=== PATIENT | male | born 1980 ===

== ENCOUNTER 2018-02-02 15:12 | Inpatient (IN) | payer OTHER ==
--- NOTE | 2018-02-02 15:36 | ED PDOC ---
Arrival/HPI - General Chief Complaint: Psychiatric Evaluation Time Seen by Provider: 02/02/18 15:21 Historian: Patient - History of Present Illness Narrative History of Present Illness (Text): 02/02/18 16:12 Patient is a 37 yo male with past medical history of bipolar disorder presents to the ED transferred from [facility] for psychiatric transfer. Patient reported that he planned to jump onto oncoming traffic, but did not act on this. No trauma reported. No overdose reported. Currently denies any headache, denies chest pain, denies shortness of breath. Denies tremors or shaking. Time/Duration: Prior to Arrival Past Medical History - Psychiatric Hx Anxiety: Yes Hx Bipolar Disorder: Yes Hx Substance Use: No Family/Social History Family/Social History: Unknown Family HX Smoking Status: Never Smoked Hx Alcohol Use: No Hx Substance Use: No Allergies/Home Meds Allergies/Adverse Reactions: Allergies No Known Allergies Allergy (Verified 02/02/18 15:30) Home Medications: Home Meds Medication Instructions Recorded Confirmed Aripiprazole [Abilify] 30 mg PO DAILY 02/02/18 02/02/18 [place] Carbonate [[place] 450 mg PO DAILY 02/02/18 02/02/18 Carbonate 300MG] Review of Systems - Review of Systems Constitutional: absent: Fevers Respiratory: absent: SOB Cardiovascular: absent: Chest Pain Gastrointestinal: absent: Abdominal Pain Musculoskeletal: absent: Back Pain Skin: absent: Rash Neurological: absent: Headache, Dizziness, Focal Weakness Endocrine: absent: Polyuria, Polydipsia Hemo/Lymphatic: absent: Easy Bleeding, Easy Bruising Psychiatric: Depression, Suicidal Ideation Physical Exam Vital Signs Reviewed: Yes Vital Signs Temp Pulse Resp BP Pulse Ox 02/02/18 15:12 97.4 F L 78 18 127/79 98 Temperature: Afebrile Appearance: Positive for: Well-Appearing, Non-Toxic, Comfortable Mental Status: Positive for: Alert and Oriented X 3 - Systems Exam Head: Present: Atraumatic, Normocephalic Pupils: Present: PERRL Extroacular Muscles: Present: EOMI Mouth: Present: Moist Mucous Membranes Pharnyx: No: ERYTHEMA Nose (Internal): Present: Normal Inspection Neck: Present: Normal Range of Motion. No: Meningeal Signs Respiratory/Chest: Present: Clear to Auscultation. No: Respiratory Distress Cardiovascular: Present: Regular Rate and Rhythm Abdomen: Present: Normal Bowel Sounds. No: Tenderness, Peritoneal Signs Back: No: CVA Tenderness Upper Extremity: No: Cyanosis Lower Extremity: Present: NORMAL PULSES. No: Edema Neurological: Present: CN II-XII Intact, Speech Normal, Motor Func Grossly Intact, Normal Sensory Function, Memory Normal Skin: Present: Warm Psychiatric: Present: Alert, Normal Insight, Normal Concentration, Depressed Mood, Suicidal Ideation. No: Homicidal Ideation, Hallucinations Medical Decision Making ED Course and Treatment: 02/02/18 16:16 Patient transferred from [place] for psychiatric admission. Transfer chart reviewed. Patient medically cleared at previous facility. On exam he is comfortable, alert, pleasant, but expresses suidical thoughts. Denies headache or chest pain or shortness of breath. Denies nausea or vomiting. No tremors noted. Patient admitted to psychiatric unit as per mental health. Not tremulous or tachycardic. No respiratory distress noted. No wheezing. Disposition/Present on Arrival - Present on Arrival Any Indicators Present on Arrival: No History of DVT/PE: No History of Uncontrolled Diabetes: No Urinary Catheter: No History of Decub. Ulcer: No History Surgical Site Infection Following: None - Disposition Have Diagnosis and Disposition been Completed?: Yes Diagnosis: Depression Disposition: HOSPITALIZED Disposition Time: 15:40 Patient Plan: Admission Condition: FAIR
[2018-02-02 16:11] VITALS: O2SAT 99
--- NOTE | 2018-02-02 17:58 | PCM.BM ---
<GianCornelio - Last Filed: 02/02/18 17:56> Treatment Plan Problems - Problems identified on initial assessmt ALTERED SLEEP PATTERNS Date Initiated: 02/02/18 Time Initiated: 17:56 Assessment reference: HP, NA Status: Active ALTERED THOUGHT PROCESS Date Initiated: 02/02/18 Time Initiated: 17:57 Assessment reference: HP, NA Status: Active INEFFECTIVE IMPULSE CONTROL Date Initiated: 02/02/18 Time Initiated: 17:57 Assessment reference: HP, Other Status: Active Treatment assets and liabiliti Patient Assests: cooperative, educated, physically healthy, negotiates basic needs, cognitively intact Patient Liabilities: live alone, relationship conflicts - Milieu Protocol Maintain good personal hygiene: daily Encourage regular showers, daily Remind patient to perform daily oral care, daily Assist patient to perform ADL's Maintain personal safety: daily Educate patient to report safety concerns to staff, daily Monitor environment for contraband/sharps Medication safety: Monitor for expected outcome, potential side effects: daily, Assess barriers to learning: daily, Assess readiness for medication education: daily Discharge/Continuing Care - Education Needs Education Needs: Patient Medication, Patient Diagnosis/Disease Process, Patient Coping Skills, Patient Anger Management skills, Patient Placement options, Patient Community resources, Patient Uses of Medical Equipment, Patient Health Practices/Safety, Patient Personal Hygiene/Grooming, Patient Aftercare Safety Plan - Discharge Discharge Criteria: Free of Suicidal thoughts, Free of agitation, Normal sleep pattern, Ability to care for self <Malathi Fletcher - Last Filed: 02/03/18 16:25> Family Contact Family involvement: Famliy/SO not involved - Outside Agency [facility] Care involvment: Information-sharing Agency contact name: [facility] <Guerita [place] - Last Filed: 02/05/18 09:15> - Diagnosis (1) Bipolar disorder Status: Acute Interventions: 02/03/18 09:10 Psychoeducation Psychopharmacology/adjustment of medications as needed/ monitoring possible side effects Monitor blood level of mood stabilizers Evaluate pt on daily basis Compliance with medications and follow up appointments Suicide and homicide risk assessment and prevention, coping strategies, safety plan Relapse prevention Reduction of symptoms Improve functional status Family involvement As outpatient: cognitive behavioral therapy
[2018-02-02] MEDS: Lithium Carbonate ER Tab 450 MG PO SCH (22:25)
[2018-02-03 08:00] LABS: FREE T4 0.9 ng/dL (0.78-2.19)
--- NOTE | 2018-02-03 16:49 | PCM.PSYCH ---
Initial Psychiatric Evaluation - Initial Psychiatric Evaluation Type of Admission: Voluntary Legal Status: Capacity (patient has capacity to sign consent for treatment) Chief Complaint (in patient's own words): "I was feeling neglected, I was feeling not been heard" Patient's Reaction to Hospitalization: patient was admitted to the psychiatric inpatient unit for evaluation and stabilization of depressive symptoms, inability to function, possible suicidal ideation. History of Present Illness and Precipitating Events: andreiy patient is 37-year-old male with reported history of bipolar disorder, currently under care of , history of multiple hospitalizations in the past, patient reported being compliant with the medications Abilify as well as lithium, patient was transferred from [facility] for evaluation of depressive symptoms, hopelessness, mood swings, inability to function, patient requires further evaluation and stabilization, medications adjustment. Patient was seen and examined today at the morning time at the treatment team meeting, patient presented to have acceptable personal hygiene, good ADLs, tearful, depressed, but was hiding his symptoms, was not forthcoming with information, reported that "I am not depressed, it is just tears". Patient reported that he had a verbal altercation with his family prior to admission and felt like a burden for his family, "I was feeling that they were ignoring me", pt presented with childlike demeanor, was making statement "I did not understand why I cannot say with my family but my brother can". pt denied hearing voices or seeing things, denied feeling paranoid, patient reported history of bipolar disorder. pt reported that he was feeling depressed since the of his uncle in April 2017, who because of Alzheimer' s dementia, pt was tearful when was talking about it. Patient has history of aggressive and agitated behavior, has history of impulse control problems, was even arrested for physical altercation and destroying property, being in penitentiary for two days in in 2016. Pt reports he will be living in housing provided by [facility] [employer] [facility] by the first of February 2018. PT reports prior psychiatric hospitalization in 2016. PT reports his outpatient psychiatrist, is Dr. Erickson Irwin. Pt reports he is prescribed Abilify and [place]. pt does not want to take any additional meds as of now. Pt report no prior suicide attempts. Pt currently denies any suicidal ideation. Strong family h/o mental illness: pt's mother has hx of mental illness and is diagnosed with Bipolar D/O. Pt reports his aunt was recently admitted to the hospital due to suicide attempt. Pt denies any drug, alcohol, or tobacco use. Pt reports having no medical issues. PT reports completed 2 years of college at [employer] and [employer] in [place]. PT reports getting an associates in Computer Science. but presented to be intellectually challenged and childlike demeanor. 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 " denied h/o abuse. Lab Results 02/03/18 07:00: [place] 0.6 02/03/18 07:00: Free T4 0.90, TSH 3rd Generation 2.06 02/03/18 07:00: Fasting Glucose 92 Vital Signs Temp Pulse Resp BP Pulse Ox 02/02/18 16:10 78 18 129/78 99 02/02/18 15:12 97.4 F L 78 18 127/79 98 Current Medications: Active Medications Generic Name Dose Route Start Last Admin Trade Name Freq PRN Reason Stop Dose Admin Aripiprazole 30 mg 02/02/18 22:00 02/02/18 22:25 Abilify PO 30 mg HS BRODERICK Administration Protocol [place] Carbonate 450 mg 02/02/18 22:00 02/02/18 22:25 [place] Carbonate PO 450 mg HS BRODERICK Administration Lorazepam 0.5 mg 02/02/18 17:42 02/02/18 22:25 Ativan PO 0.5 mg Q12H PRN Administration Anxiety Protocol Past Psychiatric History - Past Psychiatric History Previous Treatment History: Inpatient Prior Professional Help: see HPI Prior Psychiatric Treatment: see HPI At [facility]: see HPI Duration: see HPI Nature of Treatment: see HPI Explanation of prior treatment: see HPI History of Abuse: see HPI History of ETOH/Drug Use: see HPI History of Family Illness: see HPI Pertinent Medical Hx (Current Medical&Sleep Prob, Allergies): Allergies Allergy/AdvReac Type Severity Reaction Status Date / Time No Known Allergies Allergy Verified 02/02/18 18:00 Aripiprazole [Abilify] 30 mg PO DAILY 02/02/18 [place] Carbonate [[place] Carbonate 300MG] 450 mg PO DAILY 02/02/18 Review of Systems - Review of Systems Systems not reviewed;Unavailable: Acuity of Condition - EENT Eyes: As Per HPI Ears: As Per HPI Nose/Mouth/Throat: As Per HPI - Cardiovascular Cardiovascular: As Per HPI - Respiratory Respiratory: As Per HPI - Gastrointestinal Gastrointestinal: As Per HPI - Genitourinary Genitourinary: As Per HPI - Reproductive: Male Reproductive:Male: As Per HPI - Musculoskeletal Musculoskeletal: As Par HPI - Integumentary Integumentary: As Per HPI - Neurological Neurological: As Per HPI - Psychiatric Psychiatric: As Per HPI - Endocrine Endocrine: As Per HPI - Hematologic/Lymphatic Hematologic: As Per HPI Mental Status Examination - Personal Presentation Personal Presentation: Looks stated age - Affect Affect: Flat (N tearful) - Motor Activity Motor Activity: Psychomotor Retardation - Reliability in Providing Information Reliability in Providing Information: Fair - Speech Speech: Organized - Mood Mood: Depressed, Anxious - Formal Thought Process Formal Thought Process: Other (thought process was concrete) - Obsessions/Compulsions Obsessions: None Compulsions: None - Cognitive Functions Orientation: Person, Place, Situation Sensorium: Alert Attention/Concentration: Easily distracted Abstract Thinking: [place] Estimate of Intelligence: Average Judgement: Intact, as evidence by: Insight regarding need for hospitalization - Risk Risk: Self-mutilation, Diminished functioning - Strength & Assets Inventory Strength & Assets Inventory: Family support, Education, Cooperative, Other ( good physical health, no drug abuse) - Limitations Limitations: Other (pt has long h/o mental illness, h/o aggression) DSM 5 DX - DSM 5 DSM 5 Diagnosis: as per h/o bipolar disorder r/o impulse control disorder - Recommended/Plan of Treatment Treatment Recommendations and Plan of Treatment: Milieu/structure/supportive therapy Medical consult would be considered SW consultation for discharge plan and social issues Med management lithium and abilify resumed remeron started Family involvement Follow up on labs Will monitor closely Pt was educated about risk/benefits and alternatives of medications, coping strategies (safety plan, suicide prevention), relapse prevention, importance of follow up with psychiatrist and therapist, stay away from drugs/alcohol/smoking Projected ELOS: 7days Prognosis: fair Discharge Plan and Discharge Criteria: Pt will be not depressed or manic, will be more hopeful, will be not psychotic or anxious, will be not having thoughts of harming self or others, will be tolerating medications well, will not have major side effects, will be able to function, will not pose threat to self or others. - Smoking Cessation Smoking Cessation Initiated: No Reason for not providing: denied smoking
[2018-02-03] MEDS: Lithium Carbonate ER Tab 450 MG PO SCH (21:31)
--- NOTE | 2018-02-04 14:50 | PCM.PYCHPN ---
Psychiatric Progress Note - Psychiatric Progress Note Patient seen today, length of contact: 30 minutes Patient Chief Complaint: "I feels okay today, I think medication works, I know now I needed to take medication daily, I skipped my dose a night before coming to the hospital" Problems Identified/Issues Discussed: Suicide/ homicide prevention, past psychiatric h/o, current psychiatric symptoms , medical problems, risk/benefits and alternatives of medications, medications compliance, coping strategies, substance abuse h/o, relapse prevention, importance of follow up with psychiatrist and therapist, discharge plan. Medical Problems: see HPI Diagnostic Results: Lab Results 02/03/18 07:00: RPR Nonreactive 02/03/18 07:00: [place] 0.6 02/03/18 07:00: Free T4 0.90, TSH 3rd Generation 2.06 02/03/18 07:00: Fasting Glucose 92 Vital Signs Temp Pulse Resp BP Pulse Ox 02/04/18 07:26 97.9 F 66 20 109/72 02/03/18 15:00 91 H 120/76 02/02/18 16:10 78 18 129/78 99 02/02/18 15:12 97.4 F L 78 18 127/79 98 DSM 5 Symptoms Update: Shortly patient is 37-year-old male with reported history of bipolar disorder, currently under care of , history of multiple hospitalizations in the past, patient reported being compliant with the medications Abilify as well as lithium, patient was transferred from [facility] for evaluation of depressive symptoms, hopelessness, mood swings, inability to function, patient requires further evaluation and stabilization, medications adjustment. Patient was seen and examined today at the [facility], pt presented to be brighter , not that tearful. pt reported that he skipped dose of meds day prior to his admission, patient was educated to take medications daily, as it was prescribed. As per staff patient does not have any behavioral outbursts, no agitation or aggression. No psychotic symptoms elicited or reported. Patient tolerates medications well, no side effects observed or reported, aims 0 , no EPS. Impression: As per history of bipolar disorder Rule out impulse control disorder. Medication Change: Yes (Remeron increased) Medical Record Reviewed: Yes Consults ordered or reviewed: patient in good physical health, was seen by emergency room physician, does not need to be seen by medical team as of now Mental Status Examination - Cognitive Function Orientation: Person, Place, Situation Memory: Intact Attention: Poor Concentration: Poor Association: WNL Fund of Knowledge: Poor (baseline) - Mood Mood: Depressed (i feel little better), Anxious - Affect Affect: Constricted (but more reactive and mood congruent) - Speech Speech: Appropriate - Formal Thought Process Formal Thought Process: Other (thought process was concrete) - Suicidal Ideation Suicidal Ideation: No - Homicidal Ideation Homicidal Ideation: No Goal/Treatment Plan - Goal/Treatment Plan Need for Continued Stay: Remain at risks for inpatient hospitalization, Severe depression anxiety, Discharge may exacerbated symptoms, Severe functional impairment Progress Toward Problem(s) and Goals/Treatment Plan: Milieu/structure/supportive therapy Medical consult would be considered SW consultation for discharge plan and social issues Med management lithium and abilify resumed remeron will be increased today started Family involvement Follow up on labs Will monitor closely Pt was educated about risk/benefits and alternatives of medications, coping strategies (safety plan, suicide prevention), relapse prevention, importance of follow up with psychiatrist and therapist, stay away from drugs/alcohol/smoking Estimated Date of D/C: 02/07/18
[2018-02-04] MEDS: Lithium Carbonate ER Tab 450 MG PO SCH (21:25)
--- NOTE | 2018-02-05 15:29 | PCM.PYCHPN ---
Psychiatric Progress Note - Psychiatric Progress Note Patient seen today, length of contact: 30 minutes Patient Chief Complaint: "I feels okay today, I think medication works, I know now I needed to take medication daily, I skipped my dose a night before coming to the hospital" Problems Identified/Issues Discussed: Suicide/ homicide prevention, past psychiatric h/o, current psychiatric symptoms , medical problems, risk/benefits and alternatives of medications, medications compliance, coping strategies, substance abuse h/o, relapse prevention, importance of follow up with psychiatrist and therapist, discharge plan. Medical Problems: see HPI Diagnostic Results: Lab Results 02/03/18 07:00: RPR Nonreactive 02/03/18 07:00: [place] 0.6 02/03/18 07:00: Free T4 0.90, TSH 3rd Generation 2.06 02/03/18 07:00: Fasting Glucose 92 Vital Signs Temp Pulse Resp BP Pulse Ox 02/04/18 07:26 97.9 F 66 20 109/72 02/03/18 15:00 91 H 120/76 02/02/18 16:10 78 18 129/78 99 02/02/18 15:12 97.4 F L 78 18 127/79 98 DSM 5 Symptoms Update: Shortly patient is 37-year-old male with reported history of bipolar disorder, currently under care of , history of multiple hospitalizations in the past, patient reported being compliant with the medications Abilify as well as lithium, patient was transferred from [facility] for evaluation of depressive symptoms, hopelessness, mood swings, inability to function, patient requires further evaluation and stabilization, medications adjustment. Patient was seen and examined today at the [facility], pt presented to be brighter , not that tearful, at the same time pt stars at this journalists and other writers intimidating, pt does not have any aggressive or agitated behavior. No psychotic symptoms elicited or reported. Patient tolerates medications well, no side effects observed or reported, aims 0 , no EPS. Impression: As per history of bipolar disorder Rule out impulse control disorder. Medication Change: Yes (Remeron increased) Medical Record Reviewed: Yes Mental Status Examination - Cognitive Function Orientation: Person, Place, Situation Memory: Intact Attention: Poor Concentration: Poor Association: WNL Fund of Knowledge: Poor (baseline) - Mood Mood: Depressed (i feel little better), Anxious - Affect Affect: Constricted (but more reactive and mood congruent) - Speech Speech: Appropriate - Formal Thought Process Formal Thought Process: Other (thought process was concrete) - Suicidal Ideation Suicidal Ideation: No - Homicidal Ideation Homicidal Ideation: No Goal/Treatment Plan - Goal/Treatment Plan Need for Continued Stay: Remain at risks for inpatient hospitalization, Severe depression anxiety, Discharge may exacerbated symptoms, Severe functional impairment Progress Toward Problem(s) and Goals/Treatment Plan: Milieu/structure/supportive therapy Medical consult would be considered SW consultation for discharge plan and social issues Med management lithium and abilify resumed remeron increased yesterday Family involvement Follow up on labs Will monitor closely Pt was educated about risk/benefits and alternatives of medications, coping strategies (safety plan, suicide prevention), relapse prevention, importance of follow up with psychiatrist and therapist, stay away from drugs/alcohol/smoking Estimated Date of D/C: 02/07/18
[2018-02-05] MEDS: Lithium Carbonate ER Tab 450 MG PO SCH (21:12)
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
--- NOTE | 2018-02-06 17:27 | PCM.PYCHPN ---
Psychiatric Progress Note - Psychiatric Progress Note Patient seen today, length of contact: 30 minutes Patient Chief Complaint: "finally I am on good medications, I feel good" Problems Identified/Issues Discussed: Suicide/ homicide prevention, past psychiatric h/o, current psychiatric symptoms , medical problems, risk/benefits and alternatives of medications, medications compliance, coping strategies, substance abuse h/o, relapse prevention, importance of follow up with psychiatrist and therapist, discharge plan. Medical Problems: see HPI Diagnostic Results: Lab Results 02/03/18 07:00: RPR Nonreactive 02/03/18 07:00: [place] 0.6 02/03/18 07:00: Free T4 0.90, TSH 3rd Generation 2.06 02/03/18 07:00: Fasting Glucose 92 Vital Signs Temp Pulse Resp BP Pulse Ox 02/04/18 07:26 97.9 F 66 20 109/72 02/03/18 15:00 91 H 120/76 02/02/18 16:10 78 18 129/78 99 02/02/18 15:12 97.4 F L 78 18 127/79 98 DSM 5 Symptoms Update: Shortly patient is 37-year-old male with reported history of bipolar disorder, currently under care of , history of multiple hospitalizations in the past, patient reported being compliant with the medications Abilify as well as lithium, patient was transferred from [facility] for evaluation of depressive symptoms, hopelessness, mood swings, inability to function, patient requires further evaluation and stabilization, medications adjustment. Patient was seen and examined today at the hallway, pt presented to be brighter , not that tearful, patient said "finally I'm right medication now", as per pt [facility], discharge plan was d/w pt. Pt was seen by medical team today for physical exam. No psychotic symptoms elicited or reported. as per staff pt does not have aggressive or agitated behavior. Patient tolerates medications well, no side effects observed or reported, aims 0 , no EPS. Impression: As per history of bipolar disorder Rule out impulse control disorder. Medication Change: Yes (Remeron increased) Medical Record Reviewed: Yes Mental Status Examination - Cognitive Function Orientation: Person, Place, Situation Memory: Intact Attention: Poor (better) Concentration: Poor (better) Association: WNL Fund of Knowledge: Poor (baseline) - Mood Mood: Depressed (better) - Affect Affect: Constricted (but more reactive and mood congruent) - Speech Speech: Appropriate - Formal Thought Process Formal Thought Process: Other (thought process was concrete) - Suicidal Ideation Suicidal Ideation: No - Homicidal Ideation Homicidal Ideation: No Goal/Treatment Plan - Goal/Treatment Plan Need for Continued Stay: Remain at risks for inpatient hospitalization, Severe depression anxiety, Discharge may exacerbated symptoms, Severe functional impairment Progress Toward Problem(s) and Goals/Treatment Plan: Milieu/structure/supportive therapy Medical consult would be considered SW consultation for discharge plan and social issues Med management lithium and abilify remeron Family involvement Follow up on labs Will monitor closely Pt was educated about risk/benefits and alternatives of medications, coping strategies (safety plan, suicide prevention), relapse prevention, importance of follow up with psychiatrist and therapist, stay away from drugs/alcohol/smoking Estimated Date of D/C: 02/07/18
[2018-02-06] MEDS: Lithium Carbonate ER Tab 450 MG PO SCH (21:11)
[2018-02-07 06:53] VITALS: BP 125/86; PULSE 77; RESP 18; TEMP 98
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
== END 2018-02-07 09:41 | disposition home or self-care (01) | DRG 430 ==
LOC: ED 15:12 → ERH 15:33 → PSYC 16:49
PROVIDERS: ADMIT Psychiatry & Neurology Psychiatry; ATTEND Psychiatry & Neurology Psychiatry
PROC: GZ3ZZZZ Medication Management (ICD-10-PCS; principal; 2018-02-02)
DX: F31.9 Bipolar disorder, unspecified (principal); R45.851 Suicidal ideations; Z81.8 Family history of other mental and behavioral disorders

== ENCOUNTER 2018-09-09 00:43 | Inpatient (IN) | payer MEDICAID, OTHER ==
[2018-09-09 00:59] VITALS: BMI 23.6
--- NOTE | 2018-09-09 01:03 | ED PDOC ---
Arrival/HPI - General Time Seen by Provider: 09/09/18 00:50 Historian: Patient - History of Present Illness Narrative History of Present Illness (Text): 09/09/18 01:03 Fitz Luna is a 38 year old male, whose past medical history includes bipolar disorder, who presents to the Emergency department complaining of suicidal ideation. Patient states he has been feeling depressed since yesterday with suicidal ideation today. Patient states he wants to "jump in front of traffic." Patient denies any fever, chills, chest pain, shortness of breath, nausea, vomiting, diarrhea, urinary symptoms, back pain, neck pain, headache, dizziness, or any other complaints. Symptom Onset: Gradual Symptom Course: Unchanged Activities at Onset: Light Context: Home Past Medical History - Provider Review Nursing Documentation Reviewed: Yes - Infectious Disease Hx of Infectious Diseases: None - Cardiac Hx Hypertension: No - Pulmonary Hx Tuberculosis: No - Neurological Hx Seizures: No - HEENT Hx HEENT Disorder: No - Renal Hx Renal Disorder: No - Endocrine/Metabolic Hx Endocrine Disorders: No - Hematological/Oncological Hx Cancer: No - Integumentary Hx Dermatological Disorder: No - Musculoskeletal/Rheumatological Hx Musculoskeletal Disorders: No - Gastrointestinal Hx Gastrointestinal Disorders: No - Genitourinary/Gynecological Hx Sexually Transmitted Diseases: No - Psychiatric Hx Anxiety: Yes Hx Bipolar Disorder: Yes Hx Substance Use: No - Anesthesia Hx Anesthesia: No Family/Social History - Physician Review Nursing Documentation Reviewed: Yes Family/Social History: Unknown Family HX Smoking Status: Never Smoked Hx Alcohol Use: No Hx Substance Use: No Allergies/Home Meds Allergies/Adverse Reactions: Allergies No Known Allergies Allergy (Verified 02/02/18 18:00) Review of Systems - Physician Review All systems were reviewed & negative as marked: Yes - Review of Systems Constitutional: Normal. absent: Fevers Eyes: Normal ENT: Normal Respiratory: Normal. absent: SOB, Cough Cardiovascular: Normal. absent: Chest Pain Gastrointestinal: Normal. absent: Abdominal Pain, Diarrhea, Nausea, Vomiting Genitourinary Male: Normal. absent: Dysuria, Frequency, Hematuria, Urinary Output Changes Musculoskeletal: Normal. absent: Back Pain, Neck Pain Skin: Normal. absent: Rash Neurological: Normal. absent: Headache, Dizziness Endocrine: Normal Hemo/Lymphatic: Normal Psychiatric: Normal, Depression, Suicidal Ideation Physical Exam Vital Signs Reviewed: Yes Vital Signs Temp Pulse Resp BP Pulse Ox 09/09/18 01:00 98.4 F 90 18 143/81 96 Temperature: Afebrile Blood Pressure: Normal Pulse: Regular Respiratory Rate: Normal Appearance: Positive for: Well-Appearing, Non-Toxic, Comfortable Pain Distress: None Mental Status: Positive for: Alert and Oriented X 3 - Systems Exam Head: Present: Atraumatic, Normocephalic Pupils: Present: PERRL Extroacular Muscles: Present: EOMI Conjunctiva: Present: Normal Mouth: Present: Moist Mucous Membranes Neck: Present: Normal Range of Motion Respiratory/Chest: Present: Clear to Auscultation, Good Air Exchange. No: Respiratory Distress, Accessory Muscle Use Cardiovascular: Present: Regular Rate and Rhythm, Normal S1, S2. No: Murmurs Abdomen: No: Tenderness, Distention, Peritoneal Signs Back: Present: Normal Inspection Upper Extremity: Present: Normal Inspection. No: Cyanosis, Edema Lower Extremity: Present: Normal Inspection. No: Edema Neurological: Present: GCS=15, CN II-XII Intact, Speech Normal Skin: Present: Warm, Dry, Normal Color. No: Rashes Psychiatric: Present: Alert, Oriented x 3, Normal Insight, Normal Concentration Medical Decision Making ED Course and Treatment: 09/09/18 01:03 Impression: 38 year old male complaining of depression and suicidal ideation. Plan: -- EKG -- Chest X-ray -- Labs, alcohol level -- Urine drug screen -- Reassess and disposition Progress Notes: 09/09/18 04:31 Chest X-ray reviewed, shows no acute processes. 09/09/18 04:39 Reviewed EKG, NSR at [address]-segment elevations or depressions, no T-wave inversions, normal intervals. 09/09/18 07:[address] Reilly, pending PES evaluation and disposition. - RAD Interpretation Tutorial Laboratory Supervisor: ED Physician - EKG Interpretation Interpreted by ED Physician: Yes Type: 12 lead EKG - Scribe Statement The provider has reviewed the documentation as recorded by the Erik Mccann Provider Scribe Attestation: All medical record entries made by the Scribe were at my direction and personally dictated by me. I have reviewed the chart and agree that the record accurately reflects my personal performance of the history, physical exam, medical decision making, and the department course for this patient. I have also personally directed, reviewed, and agree with the discharge instructions and disposition. Disposition/Present on Arrival - Present on Arrival Any Indicators Present on Arrival: No History of DVT/PE: No History of Uncontrolled Diabetes: No Urinary Catheter: No History Surgical Site Infection Following: None - Disposition Have Diagnosis and Disposition been Completed?: No Diagnosis: History of bipolar disorder Disposition Time: 07:00 Condition: STABLE Referrals: Burak Velazquez MD [Primary Care Provider] - Follow up with primary
[2018-09-09 02:52] LABS: HEMOGLOBIN 15.5 g/dL (14.0-18.0); MEAN CELL VOLUME 87.5 fl (80.0-105.0); MEAN CORPUSCULAR HEMOGLOBIN 30.2 pg (25.0-35.0); MEAN CORPUSCULAR HGB CONC 34.5 g/dl (31.0-37.0); MEAN PLATELET VOLUME 9.8 fl (7.0-11.0); RBC 5.13 10^6/uL (3.5-6.1); RED CELL DISTRIBUTION WIDTH 12.4 % (11.5-14.5); WHITE BLOOD COUNT 9.7 10^3/uL (4.5-11.0)
[2018-09-09 03:12] LABS: ALB/GLOB RATIO 1.3 (1.1-1.8); ALBUMIN 4.7 g/dL (3.0-4.8); ALT/SGPT 40 U/L (7-56); AST/SGOT 32 U/L (17-59); BLOOD UREA NITROGEN 18 mg/dL (7-21); CALCIUM 9.6 mg/dL (8.4-10.5); GFR NON-AFRICAN AMERICAN > 60
[2018-09-09 05:32] LABS: BARBITURATES, UR NEGATIVE (NEGATIVE); BENZODIAZEPINES, UR NEGATIVE (NEGATIVE); OPIATES, UR NEGATIVE (NEGATIVE); PHENCYCLIDINE, UR NEGATIVE (NEGATIVE)
[2018-09-09 05:58] LABS: URINE BILIRUBIN NEGATIVE (NEGATIVE); URINE BLOOD NEGATIVE (NEGATIVE); URINE GLUCOSE (UA) NEGATIVE (NEGATIVE); URINE LEUKOCYTE ESTERASE NEGATIVE Leu/uL (NEGATIVE); URINE PROTEIN NEGATIVE mg/dL (<30 mg/dL); URINE UROBILINOGEN 0.2 E.U./dL (<1 E.U./dL)
[2018-09-09 06:01] LABS: URINE APPEARANCE CLEAR (CLEAR); URINE COLOR YELLOW (YELLOW)
--- NOTE | 2018-09-09 10:15 | ED PDOC ---
Physical Exam Vital Signs Temp Pulse Resp BP Pulse Ox 09/09/18 09:00 98.1 F 86 18 126/77 98 09/09/18 07:51 98.0 F 92 H 18 127/75 100 09/09/18 06:33 82 18 119/69 100 09/09/18 01:00 98.4 F 90 18 143/81 96 Medical Decision Making ED Course and Treatment: Signed out at change of shift pending PES evaluation. - Lab Interpretations Lab Results: Total Bilirubin 0.5 mg/dL (0.2-1.3) 09/09/18 02:00 AST 32 U/L (17-59) 09/09/18 02:00 ALT 40 U/L (7-56) 09/09/18 02:00 Alkaline Phosphatase 66 U/L (38-126) 09/09/18 02:00 Total Protein 8.2 g/dL (5.8-8.3) 09/09/18 02:00 Albumin 4.7 g/dL (3.0-4.8) 09/09/18 02:00 Globulin 3.5 gm/dL 09/09/18 02:00 Albumin/Globulin Ratio 1.3 (1.1-1.8) 09/09/18 02:00 Urine Color Yellow (YELLOW) 09/09/18 02:15 Urine Appearance Clear (CLEAR) 09/09/18 02:15 Urine pH 6.0 (4.7-8.0) 09/09/18 02:15 Ur Specific [place] >= 1.030 (1.005-1.035) 09/09/18 02:15 Urine Protein Negative mg/dL (<30 mg/dL) 09/09/18 02:15 Urine Glucose (UA) Negative mg/dL (NEGATIVE) 09/09/18 02:15 Urine Ketones Negative mg/dL (NEGATIVE) 09/09/18 02:15 Urine Blood Negative (NEGATIVE) 09/09/18 02:15 Urine Nitrate Negative (NEGATIVE) 09/09/18 02:15 Urine Bilirubin Negative (NEGATIVE) 09/09/18 02:15 Urine Urobilinogen 0.2 E.U./dL (<1 E.U./dL) 09/09/18 02:15 Ur Leukocyte Esterase Negative [place]a/uL (NEGATIVE) 09/09/18 02:15 - RAD Interpretation Radiology Orders: 09/09/18 01:05 CHEST PORTABLE [RAD] Stat Disposition/Present on Arrival - Present on Arrival Any Indicators Present on Arrival: No History of DVT/PE: No History of Uncontrolled Diabetes: No Urinary Catheter: No History of Decub. Ulcer: No History Surgical Site Infection Following: None - Disposition Have Diagnosis and Disposition been Completed?: Yes Diagnosis: Bipolar disorder Disposition: HOSPITALIZED Disposition Time: 10:15 Patient Plan: Admission Patient Problems: Current Active Problems Problem Status Onset History of bipolar disorder Acute Condition: GUARDED Referrals: Burak Velazquez MD [Primary Care Provider] - Follow up with primary
--- NOTE | 2018-09-09 10:57 | CARD ---
APPROVED REPORT Date of service: 09/09/2018 EKG Measurement Heart [id number] <Conclusion> Normal sinus rhythm Normal ECG
[2018-09-09 11:16] VITALS: O2SAT 96
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
--- NOTE | 2018-09-09 14:36 | RAD ---
Date of service: 09/09/2018 HISTORY: medical clearance COMPARISON: No prior. FINDINGS: LUNGS: No active pulmonary disease. PLEURA: No significant pleural effusion identified, no pneumothorax apparent. CARDIOVASCULAR: No atherosclerotic calcification present Normal. OSSEOUS STRUCTURES: No significant abnormalities. VISUALIZED UPPER ABDOMEN: Normal. OTHER FINDINGS: None. IMPRESSION: No active disease.
--- NOTE | 2018-09-09 19:19 | PCM.BM ---
<Patt Doshi - Last Filed: 09/09/18 19:15> Treatment Plan Problems - Problems identified on initial assessmt INEFFECTIVE IMPULSE CONTROL Date Initiated: 09/09/18 Time Initiated: 19:00 Assessment reference: NA Status: Active Priority: 1 MEDICATION NON ADHERENCE Date Initiated: 09/09/18 Time Initiated: 19:00 Assessment reference: NA Status: Active Priority: 2 AGITATED/AGGRESSIVE BEHAVIOR Date Initiated: 09/09/18 Time Initiated: 19:00 Assessment reference: NA Status: Active Priority: 3 Treatment assets and liabiliti Patient Assests: cooperative, educated, motivated, ADL independent, physically healthy, negotiates basic needs, cognitively intact Patient Liabilities: live alone, financial problems, poor support system - Milieu Protocol Maintain good personal hygiene: every shift Encourage regular showers, every shift Remind patient to perform daily oral care, every shift Assist patient to perform ADL's Maintain personal safety: daily Educate patient to report safety concerns to staff, daily Monitor environment for contraband/sharps Medication safety: Monitor for expected outcome, potential side effects: daily, Assess barriers to learning: daily, Assess readiness for medication education: daily Discharge/Continuing Care - Education Needs Education Needs: Patient Medication, Patient Diagnosis/Disease Process, Patient Coping Skills, Patient Community resources, Patient Activities of Daily Living, Patient Nutrition, Patient Health Practices/Safety, Patient Personal Hygiene/ Grooming, Patient Aftercare Safety Plan - Discharge Discharge Criteria: Tolerates medication w/o severe side effects, Free of Suicidal thoughts, Free of paranoid thoughts, Free of agitation, Normal sleep pattern, Ability to care for self, Reduction of target symptoms Discharge to:: Home <Jeff Metz - Last Filed: 09/10/18 13:26> - Diagnosis (1) Schizoaffective disorder Status: Acute Interventions: 09/10/18 13:27 * group, milieu and supportive tx * Abilify 30 mg po daily for disorganization and mood control * Galva 450 mg po hs for mood control * Remeron 30 mg po HS for depression * Ambien 5 mg po HS prn: insomnia * Geodon + Ativan prns for agitation <Malathi Fletcher - Last Filed: 09/10/18 14:42> Family Contact Family involvement: Family/SO is involved Family contact: Patient agrees to contact - Outside Agency [facility] Care involvment: Information-sharing Agency contact name: [facility]
[2018-09-09] MEDS: Lithium Carbonate ER Tab 450 MG PO SCH (21:10)
[2018-09-10 06:59] VITALS: RESP 20
[2018-09-10 08:31] LABS: HDL CHOLESTEROL 41 mg/dL (29-60)
[2018-09-10 08:42] LABS: LDL CHOLESTEROL 86 mg/dL (0-129)
[2018-09-10 08:47] LABS: FREE T4 0.98 ng/dL (0.78-2.19)
--- NOTE | 2018-09-10 13:33 | PCM.PSYCH ---
Initial Psychiatric Evaluation - Initial Psychiatric Evaluation Type of Admission: Voluntary Legal Status: Capacity History of Present Illness and Precipitating Events: Patient is a single 38-year-old male with a likely diagnosis of schizoaffective disorder, multiple prior psychiatric hospitalizations~ most recently at [facility] February 02 to February 07, 2018, prescribed Abilify, lithium and remeron at [facility] who was admitted to our psychiatric unit after he called 911 because of depression and suicidal thoughts of jumping in front of traffic. Dr. Lake consulted with patient in the ER. Her report indicates that patient was labile, irritable and paranoid. He admitted that he didn't take his medications recently because he believed the water was contaminated. Patient also expressed having a lot of resentment towards his family because he believed they treated his brother better than him. Patient was admitted in 01/2018 because he threatened to harm his grandmother. His grandmother refused to permit him back into her home which resulted in patient being discharged to [facility] program. On the unit, patient has been oriented x3, calm and cooperative. He was able to interact with other patients without any behavioral problems and has been compliant with medications. Thus far he is tolerating his medications and denies any new concerns. He reports improvement in self control and mood, thus far his presentation is consistent with this self report. Of note: Per package winder note "Patient stated I was just upset, I'm fine now. Admits that he did make statement to basically take [himself] out but that he said it out of anger and frustration, and to get attention from his family. Pt. denies any prior SA, but admits that he has previously made such statements to get attention from his family and get them upset. PSYCHIATRIC HISTORY ~Prior admission at [facility] in January 2018 and [facility] in January 2016. ~Patient was discharged 01/2018 from [facility] with the following Rx: remeron 30 HS, lithium 450 HS, Abilify 30 mg po daily. ~Followed up with Dr. Irwin at [facility]. Prescribed remeron 30 HS, lithium 450 HS, Abilify 30 mg po daily. Recently his outpatient care was transfered to Dr. Hart who is affiliated with [facility]. ~[facility] contact information Sara Dasn: [phone] ext. [phone] and Kodi Quintana [phone] ext. [phone]. ~Patient denies any history of suicide attempts. SOCIAL HISTORY Born and raise in [place]. Single. No children. Lives in [address]. Graduated high school. Patient is unemployed. He denies any drug or alcohol or tobacco use. The patient failed the outpatient lower level of care: Yes Current Medications: Active Medications Generic Name Dose Route Start Last Admin Trade Name Freq PRN Reason Stop Dose Admin Aripiprazole 30 mg 09/09/18 22:00 09/09/18 21:10 Abilify PO 30 mg HS BRODERICK Administration Protocol Sledge Carbonate 450 mg 09/09/18 22:00 09/09/18 21:10 Sledge Carbonate PO 450 mg HS BRODERICK Administration Lorazepam 2 mg 09/09/18 13:05 Ativan IM Q6H PRN Anxiety Protocol Lorazepam 2 mg 09/09/18 13:06 Ativan PO Q6H PRN Anxiety Protocol Mirtazapine 30 mg 09/09/18 22:00 09/09/18 21:10 Remeron PO 30 mg HS BRODERICK Administration Ziprasidone 20 mg 09/09/18 13:03 Geodon Cap PO Q6H PRN Agitation Protocol Ziprasidone 20 mg 09/09/18 13:04 Geodon Inj IM Q6H PRN Agitation Protocol Zolpidem Tartrate 5 mg 09/09/18 13:06 Ambien PO HS PRN Insomnia Protocol Present on Admission - Present on Admission Any Indicators Present on Admission: No - Notes: Notes:: Please refer to ER report dated 09/09/18 for physical exam and ROS findings. Review of Systems - Review of Systems Review of Systems: Please refer to ER report dated 09/09/18 for physical exam and ROS findings. - Constitutional Constitutional: As Per HPI - EENT Eyes: As Per HPI Ears: As Per HPI Nose/Mouth/Throat: As Per HPI - Cardiovascular Cardiovascular: As Per HPI - Respiratory Respiratory: As Per HPI - Gastrointestinal Gastrointestinal: As Per HPI - Genitourinary Genitourinary: As Per HPI - Reproductive: Male Reproductive:Male: As Per HPI - Musculoskeletal Musculoskeletal: As Per HPI - Integumentary Integumentary: As Per HPI - Neurological Neurological: As Per HPI - Psychiatric Psychiatric: As Per HPI - Endocrine Endocrine: As Per HPI - Hematologic/Lymphatic Hematologic: As Per HPI Past Patient History - Past Psychiatric History Prior Professional Help: See HPI - PSYCHIATRIC Hx Bipolar Disorder: Yes Hx Emotional Abuse: No Hx Physical Abuse: No Hx Sexual Abuse: No Hx Substance Use: No - Infectious Disease Hx of Infectious Diseases: None - Past Medical History & Family History Past Medical History?: Yes - CARDIAC Hx Hypertension: No - PULMONARY Hx Tuberculosis: No - NEUROLOGICAL Hx Seizures: No - HEENT Hx HEENT Problems: No - RENAL Hx Chronic Kidney Disease: No - ENDOCRINE/METABOLIC Hx Endocrine Disorders: No - HEMATOLOGICAL/ONCOLOGICAL Hx Cancer: No - INTEGUMENTARY Hx Dermatological Problems: No - MUSCULOSKELETAL/RHEUMATOLOGICAL Hx Musculoskeletal Disorders: No - GASTROINTESTINAL Hx Gastrointestinal Disorders: No - GENITOURINARY/GYNECOLOGICAL Hx Sexually Transmitted Disorders: No - SURGICAL HISTORY Hx Surgeries: No - ANESTHESIA Hx Anesthesia: No - Medical/Surgical History Reviewed & confirmed: by me (Please refer to ER report dated 09/09/18 for physical exam and ROS findings. ) Meds Allergies/Adverse Reactions: Allergies Allergy/AdvReac Type Severity Reaction Status Date / Time No Known Allergies Allergy Verified 02/02/18 18:00 Mental Status Examination - Personal Presentation Personal Presentation: Looks stated age - Affect Affect: Constricted, Blunted - Motor Activity Motor Activity: Calm - Reliability in Providing Information Reliability in Providing Information: Fair - Speech Speech: Organized - Mood Mood: Depressed - Formal Thought Process Formal Thought Process: No Impairment, Paranoia (a little guarded) - Obsessions/Compulsions Obsessions: No Compulsions: No - Cognitive Functions Orientation: Person, Place, Situation Sensorium: Alert Attention/Concentration: Easily distracted Estimate of Intelligence: Below average Judgement: Intact, as evidence by: Insight regarding need for hospitalization Memory: Recent intact, as evidence by: Ability to recall events of the day - Risk Risk: Suicidal, Diminished functioning Psychiatric Physical Exam - Physical Exam Reviewed and confirmed: Emergency Department Physical Exam - Additional Findings Additional findings: Please refer to ER report dated 09/09/18 for physical exam and ROS findings. Results - Vital Signs Recent Vital Signs: Last Vital Signs Temp 98.1 F 09/09/18 13:18 Pulse 93 H 09/09/18 13:18 Resp 17 09/09/18 13:18 BP 127/90 09/09/18 13:18 Pulse Ox 96 09/09/18 11:00 - Labs Result Diagrams: 09/09/18 02:00 09/09/18 02:00 Labs: Laboratory Results - last 24 hr 09/09/18 09/09/18 02:00 02:15 Urine Color Yellow Urine Appearance Clear Urine pH 6.0 Ur Specific [place] >= 1.030 Urine Protein Negative Urine Glucose (UA) Negative Urine Ketones Negative Urine Blood Negative Urine Nitrate Negative Urine Bilirubin Negative Urine Urobilinogen 0.2 Ur Leukocyte Esterase Negative Sledge 0.4 L - Impressions Impression: Please refer to ER report dated 09/09/18 for physical exam and ROS findings. DSM Plan - DSM 5 DSM 5 Diagnosis: Schizoaffective Disorder - Recommended/Plan of Treatment Treatment Recommendations and Plan of Treatment: * group, milieu and supportive tx * Abilify 30 mg po daily for disorganization and mood control * Sledge 450 mg po hs for mood control * Remeron 30 mg po HS for depression * Ambien 5 mg po HS prn: insomnia * Geodon + Ativan prns for agitation * Vitals reviewed and noted below: Selected Entries 09/09/18 09/09/18 11:00 13:18 Temperature 98.2 F 98.1 F Pulse Rate 91 H 93 H Respiratory 16 17 Rate Blood Pressure 130/73 127/90 Please refer to ER report dated 09/09/18 for physical exam and ROS findings. ER Progress Notes: 09/09/18 04:31 Chest X-ray reviewed, shows no acute processes. ER 09/09/18 04:39 Reviewed EKG, NSR at [address]-segment elevations or depressions, no T-wave inversions, normal intervals. ADMISSION LABS NOTED BELOW Laboratory Tests 09/09/18 09/09/18 09/09/18 02:00 02:00 02:00 WBC 9.7 RBC 5.13 Hgb 15.5 Hct 44.9 MCV 87.5 MCH 30.2 MCHC 34.5 RDW 12.4 Plt Count 218 MPV 9.8 Sodium 140 Potassium 4.2 Chloride 106 Carbon Dioxide 26 Anion Gap 13 BUN 18 Creatinine 1.2 Est GFR ( Amer) > 60 Est GFR (Non-Af Amer) > 60 Random Glucose 87 Calcium 9.6 Total Bilirubin 0.5 AST 32 ALT 40 Alkaline Phosphatase 66 Total Protein 8.2 Albumin 4.7 Globulin 3.5 Albumin/Globulin Ratio 1.3 Triglycerides Cholesterol LDL Cholesterol Direct HDL Cholesterol Free T4 TSH 3rd Generation Urine Color Urine Appearance Urine pH Ur Specific [place] Urine Protein Urine Glucose (UA) Urine Ketones Urine Blood Urine Nitrate Urine Bilirubin Urine Urobilinogen Ur Leukocyte Esterase Urine Opiates Screen Urine Methadone Screen Ur Barbiturates Screen Ur Phencyclidine Scrn Ur Amphetamines Screen U Benzodiazepines Scrn [place]ledge U Oth Cocaine Metabols U Cannabinoids Screen Alcohol, Quantitative < 10 09/09/18 09/09/18 09/09/18 02:00 02:15 04:10 WBC RBC Hgb Hct MCV MCH MCHC RDW Plt Count MPV Sodium Potassium Chloride Carbon Dioxide Anion Gap BUN Creatinine Est GFR ( Amer) Est GFR (Non-Af Amer) Random Glucose Calcium Total Bilirubin AST ALT Alkaline Phosphatase Total Protein Albumin Globulin Albumin/Globulin Ratio Triglycerides Cholesterol LDL Cholesterol Direct HDL Cholesterol Free T4 TSH 3rd Generation Urine Color Yellow Urine Appearance Clear Urine pH 6.0 Ur Specific [place] >= 1.030 Urine Protein Negative Urine Glucose (UA) Negative Urine Ketones Negative Urine Blood Negative Urine Nitrate Negative Urine Bilirubin Negative Urine Urobilinogen 0.2 Ur Leukocyte Esterase Negative Urine Opiates Screen Negative Urine Methadone Screen Negative Ur Barbiturates Screen Negative Ur Phencyclidine Scrn Negative Ur Amphetamines Screen Negative U Benzodiazepines Scrn Negative Sledge 0.4 L U Oth Cocaine Metabols Negative U Cannabinoids Screen Negative Alcohol, Quantitative 09/10/18 09/10/18 08:00 08:00 WBC RBC Hgb Hct MCV MCH MCHC RDW Plt Count MPV Sodium Potassium Chloride Carbon Dioxide Anion Gap BUN Creatinine Est GFR ( Amer) Est GFR (Non-Af Amer) Random Glucose Calcium Total Bilirubin AST ALT Alkaline Phosphatase Total Protein Albumin Globulin Albumin/Globulin Ratio Triglycerides 90 Cholesterol 147 LDL Cholesterol Direct 86 HDL Cholesterol 41 Free T4 0.98 TSH 3rd Generation 1.69 Urine Color Urine Appearance Urine pH Ur Specific [place] Urine Protein Urine Glucose (UA) Urine Ketones Urine Blood Urine Nitrate Urine Bilirubin Urine Urobilinogen Ur Leukocyte Esterase Urine Opiates Screen Urine Methadone Screen Ur Barbiturates Screen Ur Phencyclidine Scrn Ur Amphetamines Screen U Benzodiazepines Scrn Sledge U Oth Cocaine Metabols U Cannabinoids Screen Alcohol, Quantitative Projected ELOS: 7 d Prognosis: guarded - Tobacco Cessation Tobacco Use Status for the last 30 days: Non User Tobacco Use Treatment Practical Counseling Provided: No Tobacco Use Treatment FDA-Approved Cessation Medication Provided: No - Alcohol or Substance Abuse Does the patient have an Alcohol or Substance Abuse Disorder: No Initial Psych Certification - Initial Certification I certify that the inpatient psychiatric facility admission was medically ne cessary for either: Treatment which could reasonbly be expected to improve pt's condition, Diagnostic study I estimate of hospitalization is necessary for proper treatment of the patient: 7 Unit of Time: Days
[2018-09-10] MEDS: Lithium Carbonate ER Tab 450 MG PO SCH (21:23)
[2018-09-11 07:19] VITALS: TEMP 98.3
--- NOTE | 2018-09-11 09:59 | PCM.PYCHPN ---
Psychiatric Progress Note - Psychiatric Progress Note Patient seen today, length of contact: 25 min Problems Identified/Issues Discussed: History of Present Illness and Precipitating Events: Patient is a single 38-year-old male with a likely diagnosis of schizoaffective disorder, multiple prior psychiatric hospitalizations~ most recently [place] [facility] [place] 02 [place] February 07, 2018, prescribed Abilify, lithium and remeron at [facility] who was admitted to our psychiatric unit after he called 911 because of depression and suicidal thoughts of jumping in front of traffic. Dr. Lake consulted with patient in the ER. Her report indicates that patient was labile, irritable and paranoid. He admitted that he didn't take his medications recently because he believed the water was contaminated. Patient also expressed having a lot of resentment towards his family because he believed they treated his brother better than him. Patient was admitted in 01/2018 because he threatened to harm his grandmother. His grandmother refused to permit him back into her home which resulted in patient being discharged to [facility] program. On the unit, patient has been oriented x3, calm and cooperative. He was able to interact with other patients without any behavioral problems and has been compliant with medications. Thus far he is tolerating his medications and denies any new concerns. He reports improvement in self control and mood, thus far his presentation is consistent with this self report. Of note: Per hog tender note "Patient stated I was just upset, I'm fine now. Admits that he did make statement to basically take [himself] out but that he said it out of anger and frustration, and to get attention from his family. Pt. denies any prior SA, but admits that he has previously made such statements to get attention from his family and get them upset. PSYCHIATRIC HISTORY ~Prior admission at [facility] in January 2018 and [facility] in January 2016. ~Patient was discharged 01/2018 from [facility] with the following Rx: remeron 30 HS, lithium 450 HS, Abilify 30 mg po daily. ~Followed up with Dr. Irwin at [facility]. Prescribed remeron 30 HS, lithium 450 HS, Abilify 30 mg po daily. Recently his outpatient care was transfered to Dr. Hart who is affiliated with [facility]. ~[facility] contact information Sara Christian: [phone] ext. [phone] and Kodi Quintana [phone] ext. [phone]. ~Patient denies any history of suicide attempts. SOCIAL HISTORY Born and raise in [place]. Single. No children. Lives in [address] apartments. Graduated high school. Patient is unemployed. He denies any drug or alcohol or tobacco use. PROGRESS NOTE 09/11/18 I reviewed recent notes and met with patient at bedside. Appearance is a little unkempt. He remains oriented x3, calm and cooperative. Affect is a little more spontaneous and reactive. He reports that he is "feeling better" and indicates that he ""slept well and appetite is excellent". Patient is tolerating his medications and denies any side effects or new discomfort or pain. Staff notes indicate patient has been visible, attending groups and interacting with other patients in an appropriate manner. He denies perceptual disturbance or paranoid thoughts. Delusions were not elicited. Thus far there have been no behavioral problems since his admission to the unit. Diagnostic Results: Schizoaffective Disorder Mental Retardation (as noted in prior records) Medication Change: No Medical Record Reviewed: Yes Mental Status Examination - Cognitive Function Orientation: Person, Place, Situation Attention: WNL Concentration: Poor Association: Loose Fund of Knowledge: Poor - Mood Mood: Depressed (better) - Affect Affect: Constricted (a little more reactive, smiles a little this morning), Blunted - Speech Speech: Appropriate - Formal Thought Process Formal Thought Process: No Impairment, Paranoia (still guarded) - Suicidal Ideation Suicidal Ideation: No - Homicidal Ideation Homicidal Ideation: No Goal/Treatment Plan - Goal/Treatment Plan Progress Toward Problem(s) and Goals/Treatment Plan: * group, milieu and supportive tx * Abilify 30 mg po daily for disorganization and mood control * [place] 450 mg po hs for mood control ([place] level = 0.4 on 09/09/18) * Remeron 30 mg po HS for depression * Ambien 5 mg po HS prn: insomnia * Geodon + Ativan prns for agitation * Vitals reviewed and noted below: Selected Entries 09/11/18 07:17 Temperature 98.3 F Pulse Rate 58 L Respiratory 20 Rate Blood Pressure 120/73 Please refer to ER report dated 09/09/18 for physical exam and ROS findings. ER Progress Notes: 09/09/18 04:31 Chest X-ray reviewed, shows no acute processes. ER 09/09/18 04:39 Reviewed EKG, NSR at [address]-segment elevations or depressions, no T-wave inversions, normal intervals. ADMISSION LABS NOTED BELOW Laboratory Tests 09/09/18 09/09/18 09/09/18 02:00 02:00 02:00 WBC 9.7 RBC 5.13 Hgb 15.5 Hct 44.9 MCV 87.5 MCH 30.2 MCHC 34.5 RDW 12.4 Plt Count 218 MPV 9.8 Sodium 140 Potassium 4.2 Chloride 106 Carbon Dioxide 26 Anion Gap 13 BUN 18 Creatinine 1.2 Est GFR ( Amer) > 60 Est GFR (Non-Af Amer) > 60 Random Glucose 87 Calcium 9.6 Total Bilirubin 0.5 AST 32 ALT 40 Alkaline Phosphatase 66 Total Protein 8.2 Albumin 4.7 Globulin 3.5 Albumin/Globulin Ratio 1.3 Triglycerides Cholesterol LDL Cholesterol Direct HDL Cholesterol Free T4 TSH 3rd Generation Urine Color Urine Appearance Urine pH Ur Specific [place] Urine Protein Urine Glucose (UA) Urine Ketones Urine Blood Urine Nitrate Urine Bilirubin Urine Urobilinogen Ur Leukocyte Esterase Urine Opiates Screen Urine Methadone Screen Ur Barbiturates Screen Ur Phencyclidine Scrn Ur Amphetamines Screen U Benzodiazepines Scrn [place] U Oth Cocaine Metabols U Cannabinoids Screen Alcohol, Quantitative < 10 09/09/18 09/09/18 09/09/18 02:00 02:15 04:10 WBC RBC Hgb Hct MCV MCH MCHC RDW Plt Count MPV Sodium Potassium Chloride Carbon Dioxide Anion Gap BUN Creatinine Est GFR ( Amer) Est GFR (Non-Af Amer) Random Glucose Calcium Total Bilirubin AST ALT Alkaline Phosphatase Total Protein Albumin Globulin Albumin/Globulin Ratio Triglycerides Cholesterol LDL Cholesterol Direct HDL Cholesterol Free T4 TSH 3rd Generation Urine Color Yellow Urine Appearance Clear Urine pH 6.0 Ur Specific [place] >= 1.030 Urine Protein Negative Urine Glucose (UA) Negative Urine Ketones Negative Urine Blood Negative Urine Nitrate Negative Urine Bilirubin Negative Urine Urobilinogen 0.2 Ur Leukocyte Esterase Negative Urine Opiates Screen Negative Urine Methadone Screen Negative Ur Barbiturates Screen Negative Ur Phencyclidine Scrn Negative Ur Amphetamines Screen Negative U Benzodiazepines Scrn Negative [place] 0.4 L U Oth Cocaine Metabols Negative U Cannabinoids Screen Negative Alcohol, Quantitative 09/10/18 09/10/18 08:00 08:00 WBC RBC Hgb Hct MCV MCH MCHC RDW Plt Count MPV Sodium Potassium Chloride Carbon Dioxide Anion Gap BUN Creatinine Est GFR ( Amer) Est GFR (Non-Af Amer) Random Glucose Calcium Total Bilirubin AST ALT Alkaline Phosphatase Total Protein Albumin Globulin Albumin/Globulin Ratio Triglycerides 90 Cholesterol 147 LDL Cholesterol Direct 86 HDL Cholesterol 41 Free T4 0.98 TSH 3rd Generation 1.69 Urine Color Urine Appearance Urine pH Ur Specific [place] Urine Protein Urine Glucose (UA) Urine Ketones Urine Blood Urine Nitrate Urine Bilirubin Urine Urobilinogen Ur Leukocyte Esterase Urine Opiates Screen Urine Methadone Screen Ur Barbiturates Screen Ur Phencyclidine Scrn Ur Amphetamines Screen U Benzodiazepines Scrn [place] U Oth Cocaine Metabols U Cannabinoids Screen Alcohol, Quantitative
[2018-09-11] MEDS: Lithium Carbonate ER Tab 450 MG PO SCH (21:29)
[2018-09-12 07:14] VITALS: BP 110/74; PULSE 60
--- NOTE | 2018-09-12 15:25 | PCM.PYCHDC ---
Mental Status Examination - Mental Status Examination Orientation: Person, Place, Situation, Time Memory: Intact Mood: Neutral Affect: Constricted (But reactive and mood congruent) Speech: Appropriate (But patient has poverty of speech seems to be baseline) Attention: WNL (Much improved) Concentration: WNL (Much improved) Association: WNL Fund of Knowledge: Poor (Baseline) Formal Thought Process: No Impairment Description of patient's judgement and insight: Pt has improved insight into mental and medical illness, pt was compliant with medications and unit rules and regulations, pt was going to groups, was calm, cooperative, socially appropriate, no behavioral incidents, no agitation, no aggression. Psychotic Thoughts and Behaviors: Pt denied v/a/t hallucinations, denied paranoid ideations, pt does not appear to be psychotic, and thought process is goal directed. Suicidal Ideation: No Current Homicidal Ideation?: No Plan: pt adamantly denied thoughts of harming self or others denied intent or plan. Discharge Summary - Discharge Note Reason for Hospitalization: Worsening of depression and possible suicidal ideation Psychiatric History (includes Medical, Family, Personal Hx): History of mental illness please see admission note for more detailed info Laboratory Data: 09/09/18 02:00 09/09/18 02:00 Lab Results 09/10/18 08:00: Triglycerides 90, Cholesterol 147, LDL Cholesterol Direct 86, HDL Cholesterol 41 09/10/18 08:00: RPR Nonreactive 09/10/18 08:00: Free T4 0.98, TSH 3rd Generation 1.69 09/09/18 04:10: Urine Opiates Screen Negative, Urine Methadone Screen Negative, Ur Barbiturates Screen Negative, Ur Phencyclidine Scrn Negative, Ur Amphetamines Screen Negative, U Benzodiazepines Scrn Negative, U Oth Cocaine Metabols Negative, U Cannabinoids Screen Negative 09/09/18 02:15: Urine Color Yellow, Urine Appearance Clear, Urine pH 6.0, Ur Specific [place] >= 1.030, Urine Protein Negative, Urine Glucose (UA) Negative, Urine Ketones Negative, Urine Blood Negative, Urine Nitrate Negative, Urine Bilirubin Negative, Urine Urobilinogen 0.2, Ur Leukocyte Esterase Negative 09/09/18 02:00: Dahlgren 0.4 L 09/09/18 02:00: WBC 9.7, RBC 5.13, Hgb 15.5, Hct 44.9, MCV 87.5, MCH 30.2, MCHC 34.5, RDW 12.4, Plt Count 218, MPV 9.8 09/09/18 02:00: Alcohol, Quantitative < 10 09/09/18 02:00: Sodium 140, Potassium 4.2, Chloride 106, Carbon Dioxide 26, Anion Gap 13, BUN 18, Creatinine 1.2, Est GFR ( Amer) > 60, Est GFR (Non- Af Amer) > 60, Random Glucose 87, Calcium 9.6, Total Bilirubin 0.5, AST 32, ALT 40, Alkaline Phosphatase 66, Total Protein 8.2, Albumin 4.7, Globulin 3.5, Albumin/Globulin Ratio 1.3 Vital Signs Temp Pulse Resp BP Pulse Ox 09/12/18 07:14 98.3 F 60 20 110/74 09/11/18 16:00 101 H 128/85 09/11/18 07:17 98.3 F 58 L 20 120/73 09/10/18 16:00 98 H 119/82 09/10/18 06:58 97.3 F L 64 20 106/63 09/09/18 13:18 98.1 F 93 H 17 127/90 09/09/18 11:00 98.2 F 91 H 16 130/73 96 09/09/18 09:00 98.1 F 86 18 126/77 98 09/09/18 07:51 98.0 F 92 H 18 127/75 100 09/09/18 06:33 82 18 119/69 100 09/09/18 01:00 98.4 F 90 18 143/81 96 Consultations:: List each consultation separately and include: 1. Reason for request. 2. Findings. 3. Follow-up Consultations: Patient is healthy, was seen by medical team in the emergency room, please see note for more detailed information Summary of Hospital Course include:: 1. Description of specific treatment plan utilized for patients during their course of treatmen. 2. Summarize the time- course for resolution of acute symptoms and/or regressed behaviors. 3. Describe issues identified and worked on during hospitalization. 4. Describe medication utilized. 5. Describe medical problems identified and treated. 6. Reassessment of suicide risk Summary of Hospital Course: Patient is a single 38-year-old male with a likely diagnosis of schizoaffective disorder, multiple prior psychiatric hospitalizations~ most recently at [facility] [place] February 02 to February 07, 2018, prescribed Abilify, lithium and remeron at [facility] who was admitted to our psychiatric unit after he called 911 because of depression and suicidal thoughts of jumping in front of traffic. this functional [employer] consulted with patient in the ER. patient was labile, irritable and paranoid. He admitted that he didn't take his medications recently because he believed the water was contaminated. Patient also expressed having a lot of resentment towards his family because he believed they treated his brother better than him. Please see admission note for more detailed information. Patient was stabilized on the following medications: Abilify 30 mg daily for psychosis and mood stabilization Weight Down 450 at the nighttime for mood stabilization Remeron 30 mg at the nighttime depression and insomnia Patient tolerated medications well, no side effects observed or reported, aims 0, no EPS. Over the course of this hospitalization pt was attending groups, pt also had medication management, had therapeutic milieu. Overall pt improved significantly, pt's affect became brighter, pt was less depressed, has realistic future oriented plans, pt also does not appear to be psychotic, or anxious, pt was socially appropriate, no behavioral issues, pts insight improved as well and soon pt deemed to be ready for discharge. At the time of the discharge patient pose no imminent danger to self or others, will be following up at [facility] program, information about follow up appointment, time and address provided to the pt, (see SW note for more detailed information). It is a patient responsibility to follow up with outpatient clinic, PMD as well as specialists In case patient will need to obtain results of studies pending at discharge, patient was provided with contact information of Psychiatric Inpatient unit [phone] as well as Medical Record Department [phone], as well as [facility] team [phone]. Patient denies using drugs, denies alcohol consumption, denies smoking pt was provided with prescriptions for two weeks and one refill for psychotropic meds and one week for medical meds (see medication reconciliation form) Pt was educated about safety plan in case of worsening of symptoms or in case of suicidal or homicidal ideation call 911 or go to the nearest ER, also was educated to take meds as prescribed and stay away from drugs, pt verbalized und erstanding. - Diagnosis (1) Schizoaffective disorder Current Visit: No Status: Chronic Priority: High - Final Diagnosis (DSM 5) Condition upon Discharge: STABLE Disposition: HOME/ ROUTINE Follow-up Treatment Plan: At the time of the discharge patient pose no imminent danger to self or others, will be following up at [facility] program, information about follow up appointment, time and address provided to the pt, (see SW note for more detailed information). It is a patient responsibility to follow up with outpatient clinic, PMD as well as specialists In case patient will need to obtain results of studies pending at discharge, patient was provided with contact information of Psychiatric Inpatient unit [phone] as well as Medical Record Department [phone], as well as [facility] team [phone]. Patient denies using drugs, denies alcohol consumption, denies smoking pt was provided with prescriptions for two weeks and one refill for psychotropic meds and one week for medical meds (see medication reconciliation form) Pt was educated about safety plan in case of worsening of symptoms or in case of suicidal or homicidal ideation call 911 or go to the nearest ER, also was educated to take meds as prescribed and stay away from drugs, pt verbalized understanding. Prescriptions/Medication Reconciliation: Aripiprazole [Abilify] 30 mg PO DAILY #14 tablet Dahlgren Carbonate ER Tab [Dahlgren Carbonate] 450 mg PO HS #14 tab Mirtazapine [Remeron] 30 mg PO HS #14 tab - Smoking Cessation Smoking Cessation Medication prescribed: No Reason for not providing: Patient denies smoking - Antipsychotic Medications Pt discharged on 2 or more routine antipsychotic medications: No
== END 2018-09-12 15:47 | disposition home or self-care (01) | DRG 430 ==
LOC: ED 00:43 → ERH 10:11 → PSYC 11:49
PROVIDERS: ADMIT Psychiatry & Neurology Psychiatry; ATTEND Psychiatry & Neurology Psychiatry
DX: F25.0 Schizoaffective disorder, bipolar type (principal); G47.00 Insomnia, unspecified; R45.851 Suicidal ideations; F79 Unspecified intellectual disabilities; Z79.899 Other long term (current) drug therapy